=== PATIENT | female | born 1945 | race Caucasian/White ===

== ENCOUNTER 2024-10-15 08:41 | Outpatient (CLI) | payer MEDICARE, SELFPAY ==
--- NOTE | 2024-10-15 10:53 | P.ANES_ITS ---
Anesthesia Charges Start Date/Time Anesthesia Start Date: 10/15/24 Anesthesia Start Time: 10:30 Stop Date/Time Anesthesia Stop Date: 10/15/24 Anesthesia Stop Time: 10:52 Summary Extremes of Age - Over 70 or under 1: MARBLE CUTTER Coding CPT Codes CPT Codes: MELISSA LWR INTST NDSC NOS - [id number] ([id number]) P2 - PATIENT W/MILD SYST DISEASE, QZ - MARBLE CUTTER SVC W/O ENVIRONMENTAL SERVICES TECHNICIAN BY Additional Codes: Summary - Extremes of Age - Over 70 or under 1: MARBLE CUTTER ([id number])
--- NOTE | 2024-10-15 10:53 | W.ANESCHARGE ---
Anesthesia Charges Start Date/Time Anesthesia Start Date: 10/15/24 Anesthesia Start Time: 10:30 Stop Date/Time Anesthesia Stop Date: 10/15/24 Anesthesia Stop Time: 10:52 Summary Extremes of Age - Over 70 or under 1: BELLY DANCER Coding CPT Codes CPT Codes: MELISSA LWR INTST NDSC NOS - [id number] ([id number]) P2 - PATIENT W/MILD SYST DISEASE, QZ - BELLY DANCER SVC W/O CABIN AGENT BY Additional Codes: Summary - Extremes of Age - Over 70 or under 1: BELLY DANCER ([id number])
== END 2024-10-15 08:42 | disposition home or self-care (01) ==
LOC: OP CLINIC 08:43
PROVIDERS: PCP Family Medicine; Visit Provider Internal Medicine Gastroenterology
DX: Z12.11 Encounter for screening for malignant neoplasm of colon (principal); D12.3 Benign neoplasm of transverse colon; K57.30 Diverticulosis of large intestine without perforation or abscess without bleeding; Z86.0101 Personal history of adenomatous and serrated colon polyps
CPT/HCPCS: 00811; 45380; 45385; 88305; 99100; J2704